=== PATIENT | female | born 1960 | race American Indian/Alaskan Native ===

== ENCOUNTER 2019-07-16 13:52 | Emergency (ER) | payer MEDICARE ==
--- NOTE | 2019-07-16 14:25 | Event Note ---
ED Screening Note ED Screening Note: states she has a cough for two weeks states she is having lower back discomfort radiating down the leg no fever no n/v/d pmhx depression allergy: penicillin former smoker quit 25 years ago This initial assessment/diagnostic orders/clinical plan/treatment(s) is/are subject to change based on patients health status, clinical progression and re- assessment by fellow clinical providers in the ED. Further treatment and workup at subsequent clinical providers discretion. Patient/guardian urged not to elope from the ED as their condition may be serious if not clinically assessed and managed. Initial orders include: UA, cxr
--- NOTE | 2019-07-16 15:43 | XRay Report ---
CHEST 2 VIEWS 1439 INDICATION / CLINICAL INFORMATION: cough x2 weeks COMPARISON: None available. FINDINGS: SUPPORT DEVICES: None. HEART / MEDIASTINUM: No significant abnormality. LUNGS / PLEURA: No significant pulmonary or pleural abnormality. No pneumothorax. ADDITIONAL FINDINGS: No significant additional findings. IMPRESSION: No significant acute abnormality Signer Name: Michael Aldridge MD Signed: 07/16/2019 3:39 PM Workstation Name: [id number]
[2019-07-16 16:11] LABS: Bacteria,Urine 2+ /HPF (Negative); Bilirubin,Urine NEG (Negative); Blood,Urine NEG (Negative); Color,Urine Amber (Yellow); Mucus,Urine 3+ /HPF; Protein,Urine <15 mg/dL mg/dL (Negative)
--- NOTE | 2019-07-16 16:33 | Emergency Department Report ---
- General Chief Complaint: Upper Respiratory Infection Stated Complaint: LOWER BACK PAIN/COUGH Time Seen by Provider: 07/16/19 14:24 Source: patient Mode of arrival: Ambulatory Limitations: No Limitations - History of Present Illness Initial Comments: Patient is a 58-year-old F [place] female with no significant past medical history was presenting with 2 weeks of cough. Cough with productive yellow sputum. Patient has had fevers and chills subjectively. Patient states that she gets very dizzy when she coughs. She denies nausea vomiting body aches sore throat or neck stiffness. Patient also states she has some right lower back pain with radiation into her legs posteriorly. Been no leg swelling. Patient states the pain is a 7 out of 10 in severity and is worse with movement and better with rest. - Related Data Previous Rx's Medication Instructions Recorded Last Taken Type Ibuprofen [Motrin 800 MG tab] 800 mg PO Q8HR PRN #30 tablet 01/06/15 Unknown Rx methOCARBAMOL [Robaxin TAB] 500 mg PO BID #14 tab 01/06/15 Unknown Rx Albuterol INH(or & Nicu Only) 2 puff IH QID PRN #1 inhalation 07/16/19 Unknown Rx [ProAir HFA Inhaler] Benzonatate [Tessalon Perles] 100 mg PO Q8HR #10 capsule 07/16/19 Unknown Rx levoFLOXacin [Levaquin TAB] 500 mg PO QDAY #5 tablet 07/16/19 Unknown Rx predniSONE [Deltasone] 20 mg PO QDAY #5 tab 07/16/19 Unknown Rx Allergies Allergy/AdvReac Type Severity Reaction Status Date / Time Penicillins Allergy Itching Verified 01/06/15 14:59 ED Review of Systems ROS: Stated complaint: LOWER BACK PAIN/COUGH Other details as noted in HPI Comment: All other systems reviewed and negative ED Past Medical Hx - Past Medical History Previous Medical History?: No Additional medical history: chronic pain - Surgical History Past Surgical History?: Yes Additional Surgical History: L foot surgery - Social History Smoking Status: Never Smoker Substance Use Type: None - Medications Home Medications: Home Medications Medication Instructions Recorded Confirmed Last Taken Type Ibuprofen [Motrin 800 MG tab] 800 mg PO Q8HR PRN #30 tablet 01/06/15 Unknown Rx methOCARBAMOL [Robaxin TAB] 500 mg PO BID #14 tab 01/06/15 Unknown Rx Albuterol INH(or & Nicu Only) 2 puff IH QID PRN #1 inhalation 07/16/19 Unknown Rx [ProAir HFA Inhaler] Benzonatate [Tessalon Perles] 100 mg PO Q8HR #10 capsule 07/16/19 Unknown Rx levoFLOXacin [Levaquin TAB] 500 mg PO QDAY #5 tablet 07/16/19 Unknown Rx predniSONE [Deltasone] 20 mg PO QDAY #5 tab 07/16/19 Unknown Rx ED Physical Exam - General Limitations: No Limitations General appearance: alert, in no apparent distress - Head Head exam: Present: atraumatic, normocephalic - Eye Eye exam: Present: normal appearance - ENT ENT exam: Present: mucous membranes moist - Neck Neck exam: Present: normal inspection - Respiratory Respiratory exam: Present: normal lung sounds bilaterally. Absent: respiratory distress, wheezes, rales, rhonchi - Cardiovascular Cardiovascular Exam: Present: regular rate, normal rhythm. Absent: systolic mur mur, diastolic murmur, rubs, gallop - GI/Abdominal GI/Abdominal exam: Present: soft, normal bowel sounds. Absent: distended, tenderness, guarding, rebound - Extremities Exam Extremities exam: Present: normal inspection - Back Exam Back exam: Present: normal inspection, CVA tenderness (R) - Neurological Exam Neurological exam: Present: alert, oriented X3 - Psychiatric Psychiatric exam: Present: normal affect, normal mood - Skin Skin exam: Present: warm, dry, intact, normal color. Absent: rash ED Course Vital Signs 07/16/19 07/16/19 14:03 14:07 Temperature 98.4 F 98.4 F Pulse Rate 82 79 Respiratory 18 18 Rate Blood Pressure 119/78 Blood Pressure 119/78 [Right] O2 Sat by Pulse 92 98 Oximetry ED Medical Decision Making - Lab Data Lab Results 07/16/19 Range/Units 15:11 Urine Color Martha (Yellow) Urine Turbidity Slightly-cloudy (Clear) Urine pH 6.0 (5.0-7.0) Ur Specific [place] 1.020 (1.003-1.030) Urine Protein <15 mg/dl (Negative) mg/dL Urine Glucose (UA) Neg (Negative) mg/dL Urine Ketones Neg (Negative) mg/dL Urine Blood Neg (Negative) Urine Nitrite Pos (Negative) Urine Bilirubin Neg (Negative) Urine Urobilinogen 2.0 (<2.0) mg/dL Ur Leukocyte Esterase Lg (Negative) Urine WBC (Auto) 26.0 H (0.0-6.0) /HPF Urine RBC (Auto) 2.0 (0.0-6.0) /HPF U Epithel Cells (Auto) 7.0 (0-13.0) /HPF Urine Bacteria (Auto) 2+ (Negative) /HPF Urine Mucus 3+ /HPF - Medical Decision Making Patient is had a cough for approximately 2 weeks. Cough is productive and she has had problem with fevers at home. Patient also has evidence of UTI. Patient's back pain is most consistent with sciatica however some of the back pain could be from progressive urinary tract infection. Patient is started on Levaquin which will cover for both urinary tract infection and the patient is respiratory symptoms. Patient started on a short course of steroids which also help with both of her diagnoses. Patient be discharged home. Critical care attestation.: If time is entered above; I have spent that time in minutes in the direct care of this critically ill patient, excluding procedure time. ED Disposition Clinical Impression: Acute bronchitis Qualifiers: Bronchitis organism: unspecified organism Qualified Code(s): J20.9 - Acute bronchitis, unspecified Sciatic nerve pain Qualifiers: Laterality: right Qualified Code(s): M54.31 - Sciatica, right side UTI (urinary tract infection) Qualifiers: Urinary tract infection type: site unspecified Hematuria presence: without hematuria Qualified Code(s): N39.0 - Urinary tract infection, site not specified Disposition: DC-01 TO HOME OR SELFCARE Is pt being admited?: No Does the pt Need Aspirin: No Condition: Stable Instructions: Acute Bronchitis (ED) Referrals: NENA DOAN MD [Primary Care Provider] - 3-5 Days Time of Disposition: 16:33
[2019-07-16 17:02] VITALS: BP 125/80
== END 2019-07-16 17:01 | disposition home or self-care (01) ==
LOC: ED 13:52
DX: N39.0 Urinary tract infection, site not specified (principal); M54.30 Sciatica, unspecified side; J20.9 Acute bronchitis, unspecified; Z98.890 Other specified postprocedural states; Z88.0 Allergy status to penicillin; Z79.1 Long term (current) use of non-steroidal anti-inflammatories (NSAID); Z79.899 Other long term (current) drug therapy
CPT/HCPCS: 71046; 81001; 87076; 87086; 87186